=== PATIENT | male | born 1955 | race Caucasian/White ===

== ENCOUNTER → 2017-06-11 | Outpatient (REF) ==
[~2017-06-11] MED LIST: ASPIRIN 32325 MG/TAB PO; ASPIRIN E.C. 8181 MG PO; ATIVAN 0.50.5 MG/TAB PO; EFFIENT10 MG PO; LIPITOR20 MG PO; LOPRESSOR 225 MG/TAB PO; MOTRIN 800800 MG/TAB PO; NITROSTAT0.4 MG/TAB SL; NO HOME MEDICATIONS; PLAVIX 75MG TAB75 MG PO
== END ==
LOC: ZLAB.WCH 17:21
DX: Z01.89 Encounter for other specified special examinations (principal)

== ENCOUNTER → 2018-07-17 | Outpatient (REF) | LOC: ZLAB.WCH 15:46 | DX: Z01.89 Encounter for other specified special examinations (principal) ==

== ENCOUNTER → 2018-09-25 | Outpatient (CLI) | payer OTHER | LOC: COL.PUL 08:00 | DX: I26.99 Other pulmonary embolism without acute cor pulmonale (principal) ==

== ENCOUNTER → 2018-09-28 | Outpatient (CLI) | payer OTHER | LOC: COL.RAD 07:09 | DX: I26.99 Other pulmonary embolism without acute cor pulmonale (principal); I51.7 Cardiomegaly; R09.89 Other specified symptoms and signs involving the circulatory and respiratory systems | CPT/HCPCS: Q9967 ==

== ENCOUNTER 2021-05-14 10:23 | Day surgery (SDC) | payer BC ==
[~2021-05-14] VITALS: Ht 180.3 cm; Wt 124.0 kg
[2021-05-14] VITALS (15 sets, daily range): BP systolic 98–125; BP diastolic 49–79; PULSE 59–83; TEMP 97.6–98
[~2021-05-14 10:23] MED LIST changes: +BRILINTA90 MG PO; +COREG 6.256.25 MG/TA PO; +ELIQUIS 5MG PO; +LASIX 40MG TABL40 MG PO; +LIPITOR 80MG80 MG PO; +SYNTHROID0.137 MG PO
[2021-05-14 11:42] LABS: HEMATOCRIT 41.8 % (42.0-52.0); HEMOGLOBIN 13.4 g/dl (13.5-18.0); MEAN CELL VOLUME 89 fl (80.0-100.0); MEAN CORPUSCULAR HEMOGLOBIN 29 pg (27.0-31.0); MEAN CORPUSCULAR HGB CONC 32 g/dl (33.0-37.0); MEAN PLATELET VOLUME 10.2 fl (7.4-10.4); PLATELET COUNT 268 K/mm3 (130-400); RED BLOOD COUNT 4.71 M/mm3 (4.20-5.60); REDCELL DISTRIBUTION WIDTH-CV 14.6 % (11.5-14.5)
[2021-05-14 11:50] LABS: INR 1.1 (0.8-3.0)
[2021-05-14 11:53] LABS: PARTIAL THROMBOPLASTIN TIME 33.6 SECONDS (26.0-37.0)
[2021-05-14] MEDS ORDERED: ELIQUIS 5MG PO (12:03)
[2021-05-14] MEDS ORDERED: LIPITOR 80MG80 MG PO (12:05)
[2021-05-14] MEDS ORDERED: ENTRESTO 24 MG1 EACH PO (12:06)
[2021-05-14] MEDS ORDERED: PLAVIX 75MG TAB75 MG PO (12:06)
[2021-05-14] MEDS ORDERED: GLUCOPHAGE500 MG/TAB PO (12:08)
[2021-05-14 12:23] LABS: CALCIUM 9.4 mg/dL (8.4-10.2); CREATININE, serum 1.14 mg/dL (0.72-1.25)
[2021-05-14 12:38] LABS: POTASSIUM 4.6 mmol/L (3.5-4.5)
--- NOTE | 2021-05-14 13:25 | NUR ---
SEE MERGE DOCUMENTATION FOR MEDICATION ADMINISTRATION TIMES AND INTRA/POST PROCEDURE SEDATION ASSESSMENTS.
--- NOTE | 2021-05-14 15:51 | NUR ---
PT ARRIVED TO UNIT AT THIS TIME.
--- NOTE | 2021-05-14 16:46 | NUR ---
PT ADMISSION INTAKE AND ASSESSMENT COMPLETED. DRESSING TO L CHEST IS C/D/I. PT REPORTING A DULL PAIN TO THE SITE. TOLERATING PO FLUIDS. VS STABLE. DENIES ANY NEEDS AT THIS TIME. WILL CONTINUE TO MONITOR.
--- NOTE | 2021-05-14 21:50 | NUR ---
Patient is resting in bed watching TV, alert and oriented x 4, reports some pain in the incision, but refuses pain medication. Denies nausea or vomiting. Right radial site withount problems. Some dry blood in the gauze on the chest noted. Tele in place, paced. Assessment completed, meds provided. No further needs at this time. Call light within reach.
[2021-05-15 01:53] VITALS: BP 112/55; PULSE 74; TEMP 97.8
[2021-05-15 04:13] VITALS: BP 97/53; PULSE 79; TEMP 97.6
--- NOTE | 2021-05-15 06:40 | NUR ---
Patient has been stable along the night. He expressed some pain in the left chest but refused pain medication. Shift report given to day shift RN.
[2021-05-15 07:18] LABS: BASO # 0.1 K/mm3 (0.0-0.2); BASO % 0.7 % (0.0-2.0); EOS # 0.2 K/mm3 (0.0-0.7); EOS % 3.3 % (0-4.0); GRAN # 4.6 K/mm3 (1.4-6.5); HEMATOCRIT 38.3 % (42.0-52.0); HEMOGLOBIN 12.3 g/dl (13.5-18.0); LYMPH # 1.8 K/mm3 (1.2-3.4); MEAN CELL VOLUME 87 fl (80.0-100.0); MEAN CORPUSCULAR HEMOGLOBIN 28 pg (27.0-31.0); MEAN CORPUSCULAR HGB CONC 32 g/dl (33.0-37.0); MEAN PLATELET VOLUME 10.8 fl (7.4-10.4); MONO # 0.7 K/mm3 (0.1-0.6); MONO % 9.6 % (1.7-9.3); PLATELET COUNT 230 K/mm3 (130-400); REDCELL DISTRIBUTION WIDTH-CV 14.6 % (11.5-14.5)
[2021-05-15 07:31] VITALS: BP 107/55; PULSE 62; TEMP 97.6
[2021-05-15 07:44] LABS: CALCIUM 8.7 mg/dL (8.4-10.2); CREATININE, serum 0.94 mg/dL (0.72-1.25); POTASSIUM 3.9 mmol/L (3.5-4.5)
--- NOTE | 2021-05-15 10:08 | NUR ---
Initial visit; Patient thanked Rigging Supervisor for looking in on him and offering God's blessings.
--- NOTE | 2021-05-15 10:32 | NUR ---
PT SITTING UP IN RECLINER. MORNING MEDICATIONS GIVEN. SHIFT ASSESSMENT COMPLETED. LEFT CHEST DRESSING C/D/I WITH A SMALL AMOUNT OF OLD BLOOD ON EDGE OF DRESSING. R RADIAL CATH SITE HAS NO BLEEDING OR SWELLING. REPORTS MILD PAIN TO L CHEST, TYLENOL GIVEN PER MAR. DENIES ANY OTHER NEEDS. PREPARING FOR DISCHARGE.
[2021-05-15 11:27] VITALS: BP 111/55; PULSE 56; TEMP 98.5
--- NOTE | 2021-05-15 11:36 | NUR ---
NOEMI met with the patient to discuss discharge plan. The patient live alone in [place]. He reports independence with ADLs and does not have any DME. The patient's PCP is Dr. Lonnie Ramirez and he receives his medications from [facility]. He reports no difficulties obtaining his meds. The patient does not have a DPOA-HC, but he was interested in obtaining a form. NOEMI provided. The patient states that he is not , does not have any children, and that his parents are . He states that he has two siblings: Jenelle Erickson (ph#[phone]) and Mahendra. Jenelle lives in [place] and Mahendra lives in [facility]. The patient plans to return home upon discharge. No additional needs at this time. *Discharge plan: home*
[2021-05-15] MEDS ORDERED: CEPHALEXIN500 M1 PO (12:41)
== END 2021-05-15 14:12 | disposition home or self-care (01) ==
LOC: COL.CAR 10:23 → MEDICAL 16:06 → COL.CAR 05-15 14:12
PROVIDERS: Internal Medicine Cardiovascular Disease
DX: I25.5 Ischemic cardiomyopathy (principal); I45.6 Pre-excitation syndrome; I25.10 Atherosclerotic heart disease of native coronary artery without angina pectoris; I50.42 Chronic combined systolic (congestive) and diastolic (congestive) heart failure; I25.2 Old myocardial infarction; E11.9 Type 2 diabetes mellitus without complications; Z79.84 Long term (current) use of oral hypoglycemic drugs; E03.9 Hypothyroidism, unspecified; E78.2 Mixed hyperlipidemia; E66.9 Obesity, unspecified; Z68.38 Body mass index [BMI] 38.0-38.9, adult; Z79.890 Hormone replacement therapy; Z86.711 Personal history of pulmonary embolism; Z86.73 Personal history of transient ischemic attack (TIA), and cerebral infarction without residual deficits; Z95.5 Presence of coronary angioplasty implant and graft; Z79.01 Long term (current) use of anticoagulants; Z79.02 Long term (current) use of antithrombotics/antiplatelets; Z79.82 Long term (current) use of aspirin; Z79.899 Other long term (current) drug therapy
CPT/HCPCS: OP; C1769; C1777; C1882; C1894; C1898; C1900; J0690; J1644; J2250; J2704; J3010; J7030; Q9967